=== PATIENT | female | born 1985 | race Caucasian/White ===

== ENCOUNTER 2016-02-28 12:15 | Emergency (ER) | payer OTHER ==
[~2016-02-28] VITALS: Ht 162.6 cm; Wt 108.9 kg
[~2016-02-28 12:15] MED LIST: ACET-749 PO; OMEP20TA14 PO; PEDICHW53 PO
[2016-02-28 12:19] VITALS: BP 142/84; PULSE 93; TEMP 36.4; O2SAT 98; Ht 162.6 cm; Wt 108.9 kg
--- NOTE | 2016-02-28 12:33 | EMERGENCY ROOM VISIT NOTE ---
ED Visit Note First contact with patient: 12:23 CHIEF COMPLAINT: Head congestion HPI: This 30-year-old female presents the ER with complaints of head and chest congestion which started one and a half weeks ago. The patient states that the chest congestion has gotten better but she still has a head congestion with a lot of pressure between her eyes into the left temporal region. She also admits to pressure in both her ears and left ear pain. The patient denies any sore throat. The patient denies any fever or cough at this time. The patient has been taking multiple [id number] symptomatic treatment with slight relief. REVIEW OF SYSTEMS: 6 system review was performed and was negative unless stated otherwise in history of present illness. PMH: The patient is healthy; SOCIAL HISTORY: Patient with her family. The patient denies any tobacco or alcohol use. PHYSICAL EXAM: Vital Signs were reviewed: Reviewed Nurse's notes and agree. Oxygen saturation is 98 % on room air which is normal . GENERAL: 30-year-old male appears in no acute distress. MENTAL STATUS: Alert, oriented, coherent. EARS: Canals clear. TMs good light reflex, no erythema or fluid level noted. NOSE: Nasal mucosa with moderate erythema engorgement. PHARYNX: No erythema, no edema noted. No exudate noted. Airway is adequate. SINUSES: Patient has diffuse tenderness palpation over the maxillary and frontal sinuses. NECK: Supple, non-tender. No lymphadenopathy noted. LUNGS: Clear to auscultation without wheezes rales or rhonchi. CARDIAC: Regular rate and rhythm without murmur. SKIN: No rashes noted. DIAGNOSIS: Acute sinusitis DISCHARGE INSTRUCTIONS: Ibuprofen 600 mg every 6 hours with food for pain. Take Augmentin as prescribed. Continue [id number] symptomatic treatment. If symptoms persist, follow-up with your family physician. Current/Historical Medications Scheduled Acetaminophen/Codeine (Tylenol W/Codeine #3), 2 TAB PO Q8 Omeprazole Magnesium (Prilosec Otc), 1-2 TAB PO DAILY Pediatric Multiple Vitamin W/ (Flintstones Gummies), 2 TAB PO QAM Allergies Coded Allergies: Chlorhexidine (Verified Allergy, Mild, RASH, 02/19/15) FINE RED RASH AND SKIN BURNING Latex (Verified Allergy, Mild, ITCHINESS, 02/18/15) Vital Signs Date Time Temp Pulse Resp B/P Pulse Ox O2 Delivery O2 Flow Rate FiO2 02/28/16 12:19 36.4 93 18 142/84 98 Room Air Departure Information Referrals No Doctor, Assigned (PCP) [facility]
[2016-02-28] MEDS ORDERED: AMOX875T PO (12:34)
== END 2016-02-28 12:50 | disposition home or self-care (01) ==
LOC: C.EDB 12:16 → C.EDD 12:50
DX: J01.90 Acute sinusitis, unspecified (principal)

== ENCOUNTER → 2016-03-10 | Outpatient (CLI) | payer OTHER ==
[~2016-03-10] MED LIST changes: -ACET-749 PO; +AMOX875T PO; -OMEP20TA14 PO; -PEDICHW53 PO
[2016-03-10 12:19] LABS: BASO % 0.9 %; BASO ABS # 0.08 K/uL (0-0.2); COMPLETE YES; HEMATOCRIT 41.4 % (37-47); IG% 0.2 %; LYMPH % 36.8 %; MEAN CELL VOLUME 87.5 fL (80-100); MEAN CORPUSCULAR HEMOGLOBIN 29.6 pg (25-34); MEAN CORPUSCULAR HGB CONC 33.8 g/dl (32-36); MEAN PLATELET VOLUME 10.1 fL (7.4-10.4); MONO % 4.6 %; NEUT % 56.5 %; PLATELET COUNT 323 K/uL (130-400); RED BLOOD COUNT 4.73 M/uL (4.2-5.4)
[2016-03-10 12:46] LABS: BLOOD UREA NITROGEN 6 mg/dl (7-18); BUN/CREATININE RATIO 7.6 (10-20); CALCIUM 9.2 mg/dl (8.5-10.1); CARBON DIOXIDE 26 mmol/L (21-32); CHLORIDE 106 mmol/L (98-107); CREATININE 0.79 mg/dl (0.60-1.20); GLUCOSE 83 mg/dl (70-99); POTASSIUM 4.2 mmol/L (3.5-5.1); SODIUM 140 mmol/L (136-145)
== END | disposition home or self-care (01) ==
LOC: C.LABPVFM 10:47
PROVIDERS: ATTEND Nurse Practitioner
DX: R53.83 Other fatigue (principal); R41.840 Attention and concentration deficit; N92.0 Excessive and frequent menstruation with regular cycle

== ENCOUNTER → 2016-04-04 | Outpatient (CLI) | payer OTHER | END | disposition home or self-care (01) | LOC: C.PAPS 15:18 | PROVIDERS: ATTEND Obstetrics & Gynecology | DX: Z01.419 Encounter for gynecological examination (general) (routine) without abnormal findings (principal) ==

== ENCOUNTER → 2016-05-05 | Outpatient (CLI) | payer OTHER ==
[~2016-05-05] MED LIST changes: +ACET-1256 PO; -AMOX875T PO; +BUSP-8 PO; +FLUO20CA35 PO; +HYDR-5688 PO; +IBUP-1050 PO; +ONDA4TAB46 PO
== END | disposition home or self-care (01) ==
LOC: C.LABPVFM 13:31
PROVIDERS: ATTEND Nurse Practitioner
DX: R53.83 Other fatigue (principal); R41.840 Attention and concentration deficit; E55.9 Vitamin D deficiency, unspecified

== ENCOUNTER 2016-12-21 21:18 | Observation (INO) | payer OTHER ==
[~2016-12-21] VITALS: Ht 162.6 cm; Wt 107.0 kg
[2016-12-21] MEDS ORDERED: ONDANSETRON INJ 2 MG/ML 2 ML VIAL IV STA (21:40)
[2016-12-21] MEDS ORDERED: MoRPHine SULFATE 4 MG/ML 1 ML CARP\\VIAL IV STA (21:40)
[2016-12-21] MEDS ORDERED: FAMOTIDINE 20MG/5ML IV PUSH IV STA (21:40)
[2016-12-21 22:16] LABS: PREG INTERNAL NEGATIVE QC NEG CLEAR BACKGROUND; PREG INTERNAL POSITIVE QC POS CONTROL LINE
[2016-12-21 22:22] LABS: BUN/CREATININE RATIO 12.1 (10-20); CALCIUM 9.2 mg/dl (8.5-10.1); CREATININE 0.86 mg/dl (0.60-1.20); POTASSIUM 3.9 mmol/L (3.5-5.1)
[2016-12-21] MEDS ORDERED: HYDROmorphone INJ 1 MG/ML SYR IV STA (22:23)
[2016-12-21 22:26] LABS: BASO % 0.2 %; BASO ABS # 0.04 K/uL (0-0.2); COMPLETE YES; EOS % 0.2 %; HEMATOCRIT 41.9 % (37-47); IG% 0.3 %; LYMPH % 9.5 %; LYMPH ABS # 1.86 K/uL (1.2-3.4); MEAN CELL VOLUME 90.7 fL (80-100); MEAN CORPUSCULAR HGB CONC 34.1 g/dl (32-36); NEUT % 83.8 %; PLATELET COUNT 323 K/uL (130-400); RED BLOOD COUNT 4.62 M/uL (4.2-5.4); WHITE BLOOD COUNT 19.63 K/uL (4.8-10.8)
--- NOTE | 2016-12-21 22:31 | DIAGNOSTIC IMAGING REPORT ---
CHEST ONE VIEW PORTABLE HISTORY: 31 years-old Female CHEST PAIN acute atypical chest pain COMPARISON: None available TECHNIQUE: Portable AP view of the chest FINDINGS: Cardiac mediastinal and hilar silhouettes are within normal limits. No pneumothorax, pleural effusion, focal airspace consolidation or overt pulmonary edema. Bones of the chest are grossly intact. IMPRESSION: No acute cardiopulmonary process. The above report was generated using voice recognition software. It may contain grammatical, syntax or spelling errors. Electronically signed by: Urban Solorio M.D. 12/21/2016 10:30 PM Dictated Date/Time: 12/21/2016 10:30 PM
[2016-12-21] MEDS ORDERED: BUSP-8 PO (22:53)
[2016-12-21] MEDS ORDERED: ONDA4TAB46 PO (22:53)
[2016-12-21] MEDS ORDERED: IBUP-1050 PO (22:53)
[2016-12-21] MEDS ORDERED: ACET-1256 PO (22:53)
[2016-12-21] MEDS ORDERED: FLUO20CA35 PO (22:53)
[2016-12-22] VITALS (7 sets, daily range): BP systolic 104–138; BP diastolic 65–95; PULSE 67–79; TEMP 36.7–37; O2SAT 92–96; Ht 162.6 cm; Wt 107.0 kg
[2016-12-22] MEDS ORDERED: HYDROmorphone INJ 1 MG/ML SYR IV STA (00:13)
[2016-12-22] MEDS ORDERED: CEFOXITIN 2000MG/60 ML D5W IV STA (00:23)
[2016-12-22] MEDS ORDERED: SODIUM CHLORIDE 0.9% 1000ML 1,000 ML IV STA (00:23)
[2016-12-22] MEDS ORDERED: CEFOXITIN IV 2,000 MG in DEXTROSE 5% 50ML 50 ML IV STA (00:29)
[2016-12-22] MEDS ORDERED: HYDROmorphone INJ 1 MG/ML SYR IV PRN (00:45)
[2016-12-22] MEDS: ONDANSETRON INJ 2 MG/ML 2 ML VIAL IV PRN ×2 (02:15→18:04)
[2016-12-22] MEDS: ACETAMINOPHEN IV 1,000 MG in EMPTY BAG 0 ML IV SCH ×3 (02:15→18:11)
[2016-12-22] MEDS: LACTATED RINGER'S 1000ML 1,000 ML IV SCH ×3 (02:16→18:10)
[2016-12-22] MEDS ORDERED: IV FLUIDS COMPLETED PRN (02:45)
[2016-12-22] MEDS ORDERED: INFLUENZA VIRUS QUAD VACCINE 0.5 ML SYR IM. ONE (02:45)
[2016-12-22] MEDS ORDERED: INFLUENZA ADMINISTRATION CHARGE ONE (02:45)
--- NOTE | 2016-12-22 05:42 | EMERGENCY ROOM VISIT NOTE ---
History First contact with patient: 21:34 Chief Complaint: ABDOMINAL PAIN Stated Complaint: CHOLECYSTITIS Nursing Triage Summary: patient states she has had right shoulder pain for past couple days and and recently pain began radiating into right upper quadrant abdominal area. History of Present Illness The patient is a 31 year old female who presents to the Emergency Room with complaints of right upper quadrant pain for the past day with subjective fever and chills and nausea and vomiting. Pain currently 8 out of 10. Nothing makes it better or worse. It does not radiate. Patient smokes and has traveled recently. No history of blood clots. Patient denies chest pain, headache, sore throat, back pain, urinary symptoms. Review of Systems See HPI for pertinent positives & negatives. A total of 10 systems reviewed and were otherwise negative. Past Medical/Surgical History Medical Problems: (1) 38 weeks 2 days (2) Cholecystitis (3) Twins Social History Smoking Status: Current Some Day Smoker Current/Historical Medications Scheduled Acetaminophen (Tylenol), 1,000 MG PO Q6 Buspirone Hcl (Buspirone Hcl), 10 MG PO TID Fluoxetine (Prozac), 20 MG PO QAM Scheduled PRN Ibuprofen (Advil), 400-600 MG PO Q6H PRN for Pain or Fever Ondansetron Hcl (Zofran), 4 MG PO Q6 PRN for Nausea Physical Exam Vital Signs Date Time Temp Pulse Resp B/P (MAP) Pulse Ox O2 Delivery O2 Flow Rate FiO2 12/22/16 00:27 36.9 12/21/16 23:42 71 20 156/94 98 Room Air 12/21/16 22:28 63 18 145/79 98 Room Air 12/21/16 22:00 65 12/21/16 21:49 98 Room Air 12/21/16 21:49 98 Room Air 12/21/16 21:25 36.8 77 16 152/97 98 Room Air Physical Exam VITALS: Vitals are noted on the nurse's note and reviewed by myself. Vital signs stable. GENERAL: White female writhing in pain, in no acute distress, nondiaphoretic, well-developed well-nourished. SKIN: The skin was without rashes, erythema, edema, or bruising. There is no tenting of the skin. Capillary reflex less than 2 seconds. HEAD: Normocephalic atraumatic. EARS: External auditory canals clear, tympanic membranes pearly thompson without erythema or effusion bilaterally. EYES: Pupils equal round and reactive to light and accommodation. Conjunctivae without injection, sclerae without icterus. Extraocular movements intact. NOSE: Patent, turbinates without inflammation or discharge. MOUTH: Mucous membranes moist. Pharynx without erythema or exudate. Uvula midline. Airway patent. Tongue does not deviate. NECK: Supple without nuchal rigidity. No lymphadenopathy. No thyromegaly. Cervical spine is nontender. No JVD. HEART: Regular rate and rhythm without murmurs gallops or rubs. LUNGS: Clear to auscultation bilaterally without wheezes, rales or rhonchi. No dullness to percussion. No retractions or accessory muscle use. ABDOMEN: Positive bowel sounds x 4. Normal tympanic percussion. Soft, tender to palpation right upper quadrant, protuberant, obese, no CVA tenderness, without masses or organomegaly. Loredo sign positive. No guarding or rebound tenderness. MUSCULOSKELETAL: No muscle atrophy, erythema, or edema noted. NEURO: Patient was alert and oriented to person place and time. Normal sensation to light and sharp touch. No focal neurological deficits. Medical Decision & Procedures Laboratory Results 12/21/16 21:40 Red Blood Count 4.62, Mean Corpuscular Volume 90.7, Mean Corpuscular Hemoglobin 31.0, Mean Corpuscular Hemoglobin Concent 34.1, Mean Platelet Volume 10.0, Neutrophils (%) (Auto) 83.8, Lymphocytes (%) (Auto) 9.5, Monocytes (%) (Auto) 6.0, Eosinophils (%) (Auto) 0.2, Basophils (%) (Auto) 0.2, Neutrophils # (Auto) 16.46, Lymphocytes # (Auto) 1.86, Monocytes # (Auto) 1.18, Eosinophils # (Auto) 0.03, Basophils # (Auto) 0.04 12/21/16 21:40 Test 12/21/16 21:40 12/21/16 21:48 White Blood Count 19.63 K/uL (4.8-10.8) Red Blood Count 4.62 M/uL (4.2-5.4) Hemoglobin 14.3 g/dL (12.0-16.0) Hematocrit 41.9 % (37-47) Mean Corpuscular Volume 90.7 fL (80-100) Mean Corpuscular Hemoglobin 31.0 pg (25-34) Mean Corpuscular Hemoglobin Concent 34.1 g/dl (32-36) Platelet Count 323 K/uL (130-400) Mean Platelet Volume 10.0 fL (7.4-10.4) Neutrophils (%) (Auto) 83.8 % Lymphocytes (%) (Auto) 9.5 % Monocytes (%) (Auto) 6.0 % Eosinophils (%) (Auto) 0.2 % Basophils (%) (Auto) 0.2 % Neutrophils # (Auto) 16.46 K/uL (1.4-6.5) Lymphocytes # (Auto) 1.86 K/uL (1.2-3.4) Monocytes # (Auto) 1.18 K/uL (0.11-0.59) Eosinophils # (Auto) 0.03 K/uL (0-0.5) Basophils # (Auto) 0.04 K/uL (0-0.2) RDW Standard Deviation 45.2 fL (36.4-46.3) RDW Coefficient of Variation 13.6 % (11.5-14.5) Immature Granulocyte % (Auto) 0.3 % Immature Granulocyte # (Auto) 0.06 K/uL (0.00-0.02) Anion Gap 8.0 mmol/L (3-11) Est Creatinine Clear Calc Drug Dose 119.5 ml/min Estimated GFR () 105.8 Estimated GFR (Non- 91.3 BUN/Creatinine Ratio 12.1 (10-20) Calcium Level 9.2 mg/dl (8.5-10.1) Total Bilirubin 0.5 mg/dl (0.2-1) Direct Bilirubin 0.1 mg/dl (0-0.2) Aspartate Amino Transf (AST/SGOT) 13 U/L (15-37) Alanine Aminotransferase (ALT/SGPT) 26 U/L (12-78) Alkaline Phosphatase 82 U/L (45-117) Total Protein 8.2 gm/dl (6.4-8.2) Albumin 4.3 gm/dl (3.4-5.0) Lipase 71 U/L (73-393) Human Chorionic Gonadotropin, Qual NEG (NEG) Bedside Troponin I < 0.030 ng/ml (0-0.045) Medications Administered Medications (Trade) Dose Ordered Sig/Yenny Route Start Time Stop Time Status Last Admin Dose Admin Morphine Sulfate (MoRPHine SULFATE INJ) 4 mg NOW STAT IV 12/21/16 21:40 12/21/16 21:44 DC 12/21/16 21:50 4 MG Ondansetron HCl (Zofran Inj) 4 mg NOW STAT IV 12/21/16 21:40 12/21/16 21:45 DC 12/21/16 21:50 4 MG Famotidine (Pepcid 20mg Iv Push) 20 mg ONE STAT IV 12/21/16 21:40 12/21/16 21:45 DC 12/21/16 21:50 20 MG Hydromorphone HCl (Dilaudid Inj) 1 mg NOW STAT IV 12/21/16 22:23 12/21/16 22:24 DC 12/21/16 22:27 1 MG Hydromorphone HCl (Dilaudid Inj) 1 mg NOW STAT IV 12/22/16 00:13 12/22/16 00:14 DC 12/22/16 00:13 1 MG Sodium Chloride 1,000 ml @ 999 mls/hr Q1H1M STAT IV 12/22/16 00:23 12/22/16 01:23 DC 12/22/16 00:40 999 MLS/HR Cefoxitin Sodium 2000 mg/Dextrose 60 ml @ 120 mls/hr NOW STAT IV 12/22/16 00:29 12/22/16 00:58 DC 12/22/16 00:39 120 MLS/HR ED Course Prior records/ancillary studies reviewed. Triage Nursing notes reviewed. Additional history obtained from family. The patient's history was concerning for abdominal pain. Differential diagnosis: Etiologies such as appendicitis, diverticulitis, PUD, biliary pathology, UTI, pancreatitis, obstruction, mesenteric ischemia, aortic pathology, infections, inflammatory bowel disease, renal colic, as well as others were entertained. Physical examination findings: As above. ER treatment provided: Morphine, Dilaudid, IV fluids On reassessment the patient felt better. Diagnostics interpreted by me: ECG: Normal sinus, normal intervals, no acute ST-T wave changes. Impression normal sinus rhythm interpreted by myself The labs revealed leukocytosis. Negative lactic acid. Negative troponin Imaging studies: Ultrasound is concerning for acute cholecystitis per radiology CHEST ONE VIEW PORTABLE HISTORY: 31 years-old Female CHEST PAIN acute atypical chest pain COMPARISON: None available TECHNIQUE: Portable AP view of the chest FINDINGS: Cardiac mediastinal and hilar silhouettes are within normal limits. No pneumothorax, pleural effusion, focal airspace consolidation or overt pulmonary edema. Bones of the chest are grossly intact. IMPRESSION: No acute cardiopulmonary process. The above report was generated using voice recognition software. It may contain grammatical, syntax or spelling errors. Consultation: A consultation was placed with the surgeon, Dr. Woodson. The case was discussed and diagnostics were reviewed. The patient was admitted to his service. Exam and history seem consistent with acute cholecystitis. Patient was placed nothing by mouth. She was started on antibiotics. She states she had a fever at home. She does not have one here in the ER. Her pain was managed. She will be evaluated by surgery. By the evaluation outlined above emergent etiologies such as appendicitis, diverticulitis, PUD, UTI, pancreatitis, obstruction, mesenteric ischemia, aortic pathology, inflammatory bowel disease, renal colic, as well as others were deemed relatively unlikely. The pt informed about the findings as listed above. All questions were answered and pleased with the treatment. Case reviewed with my attending. Medical Decision As above Medication Reconcilliation Current Medication List: was personally reviewed by me Blood Pressure Screening Patient's blood pressure: Normal blood pressure Impression Primary Impression: Acute cholecystitis Departure Information Dispostion Still a Patient Condition FAIR Referrals Marely Shi, Dickson.N.P (PCP) Forms HOME CARE DOCUMENTATION FORM, IMPORTANT VISIT INFORMATION Patient Instructions My [facility]
[2016-12-22] MEDS: CEFOXITIN IV 1,000 MG in DEXTROSE 5% 50ML 50 ML IV SCH ×4 (06:05→23:35)
--- NOTE | 2016-12-22 07:01 | DIAGNOSTIC IMAGING REPORT ---
CLINICAL HISTORY: ULTRASOUND RIGHT UPPER QUADRANT ABDOMEN CLINICAL HISTORY: Right upper quadrant abdominal pain. COMPARISON STUDY: No priors. TECHNIQUE: Real-time, grayscale, and color flow sonography of the right upper quadrant of the abdomen was performed. Images are reviewed in the transverse and longitudinal planes. FINDINGS: Liver: The liver is normal in size and echotexture. There is no intrahepatic biliary ductal dilatation. The main portal vein is patent. Gallbladder: The gallbladder is distended and filled with shadowing calcified gallstones. The gallbladder wall appears mildly thickened measuring up to 6 mm. Trace pericholecystic fluid is seen. A sonographic Loredo's sign is reportedly absent. The common bile duct measures up to 0.7 cm in diameter. Pancreas: Not well visualized due to overlying bowel gas. Right kidney: Survey images of the right kidney demonstrate normal size and echotexture. There is no hydronephrosis. Ascites: None. IMPRESSION: Cholelithiasis with sonographic findings concerning for acute cholecystitis. Clinical correlation will be required. Nuclear hepatobiliary scan could be considered for confirmation. Electronically signed by: Beto Gordillo M.D. 12/22/2016 6:59 AM Dictated Date/Time: 12/22/2016 6:58 AM
--- NOTE | 2016-12-22 07:44 | History and Physical ---
History & Physical Date Dec 22, 2016. Chief Complaint Right Upper Quadrant Abdominal Pain History of Present Illness The patient is a 31 year old female with PMH significant for anxiety with complaints of back pain and abdominal pain X 2 days. Patient states that she has had this back pain for the last 2 years and felt that it was just due to back spasms. Patient unable to correlate back pain with eating or with certain foods. Strong family history of gallbladder issues- mother and maternal grandparents both required cholecystectomy. Patient reports that severe back pain started to radiate to right upper quadrant yesterday. She reports that she became nauseous and vomited several times yesterday. She reports that she had chills yesterday. Prior abdominal surgeries consist of (February,). Past Medical/Surgical History Medical Problems: 1. Cholecystitis. 2. Anxiety Surgical History 1. - twins, February,. Additional History Hepatic Disease: No Endocrine Disorder: No Kidney Disease: No Hypertension: No Heart Disease: No Bleeding Tendencies: No Infectious Diseases: No Allergies Coded Allergies: Chlorhexidine (Verified Allergy, Mild, RASH, 02/28/16) FINE RED RASH AND SKIN BURNING Latex (Verified Allergy, Mild, ITCHINESS, 02/28/16) Home Medications Scheduled Acetaminophen (Tylenol), 1,000 MG PO Q6 Buspirone Hcl (Buspirone Hcl), 10 MG PO TID Fluoxetine (Prozac), 20 MG PO QAM Scheduled PRN Ibuprofen (Advil), 400-600 MG PO Q6H PRN for Pain or Fever Ondansetron Hcl (Zofran), 4 MG PO Q6 PRN for Nausea Physical Examination Skin: warm/dry, no rash Cardiovascular: regular rate, rhythm, no edema, no murmur Abdomen / GI: normal bowel sounds, non tender Diagnosis CLINICAL HISTORY: ULTRASOUND RIGHT UPPER QUADRANT ABDOMEN CLINICAL HISTORY: Right upper quadrant abdominal pain. COMPARISON STUDY: No priors. TECHNIQUE: Real-time, grayscale, and color flow sonography of the right upper quadrant of the abdomen was performed. Images are reviewed in the transverse and longitudinal planes. FINDINGS: Liver: The liver is normal in size and echotexture. There is no intrahepatic biliary ductal dilatation. The main portal vein is patent. Gallbladder: The gallbladder is distended and filled with shadowing calcified gallstones. The gallbladder wall appears mildly thickened measuring up to 6 mm. Trace pericholecystic fluid is seen. A sonographic Loredo's sign is reportedly absent. The common bile duct measures up to 0.7 cm in diameter. Pancreas: Not well visualized due to overlying bowel gas. Right kidney: Survey images of the right kidney demonstrate normal size and echotexture. There is no hydronephrosis. Ascites: None. IMPRESSION: Cholelithiasis with sonographic findings concerning for acute cholecystitis. Clinical correlation will be required. Nuclear hepatobiliary scan could be considered for confirmation. Electronically signed by: Beto Gordillo M.D. 12/22/2016 6:59 AM Dictated Date/Time: 12/22/2016 6:58 AM Plan of Treatment 31 yo female- US confirmed Cholelithiasis, Possible Acute Cholecystitis. Reviewed patient's recent imaging. WBC elevated at 19.63. Patient NPO Plan for Laparoscopic Cholecystectomy, Possible Open with Possible Cholangiogram with Dr. Woodson in main OR today. Risks of surgery were discussed with patient and include bleeding, infection , injury, etc. Patient had no further questions regarding surgery or post-operative instructions. Dr. Woodson will be in to see patient pre-operatively to review surgery and to sign consent form.
[2016-12-22] MEDS ORDERED: BUPIVACAINE/EPINEPHRINE 0.5% MPF 1:200,000 30 ML VIAL ONE (08:05)
[2016-12-22] MEDS ORDERED: PHENYLEPHRINE 100MCG/ML 5ML SYR IV PRN (08:15)
[2016-12-22] MEDS ORDERED: ONDANSETRON INJ 2 MG/ML 2 ML VIAL IV PRN (08:15)
[2016-12-22] MEDS ORDERED: EpHEDrine SULFATE INJ 50 MG/ML AMP IV PRN (08:15)
[2016-12-22] MEDS ORDERED: ATROPINE SULFATE 0.1 MG/ML 5ML SYR IV PRN (08:15)
[2016-12-22] MEDS ORDERED: FENTANYL CITRATE INJ 50 MCG/1 ML 2 ML VIAL ONE ×2 (08:41→10:44)
[2016-12-22] MEDS ORDERED: ROCURONIUM BROMIDE 10 MG/ML 5 ML VIAL IV ONE (08:41)
[2016-12-22] MEDS ORDERED: PROPOFOL IV EMULSION 10 MG/ML 20 ML VIAL IV ONE (08:41)
[2016-12-22] MEDS ORDERED: MIDAZOLAM HCL 1 MG/ML 2ML VIAL ONE (08:41)
[2016-12-22] MEDS ORDERED: LIDOCAINE HCL 2% 2 ML VIAL (20MG/ML) ONE (08:41)
--- NOTE | 2016-12-22 09:22 | History & Physical Bridge Note ---
H&P Re-Evaluation Bridge Note: I have examined the patient, reviewed the History & Physical and in the interval since the performance of the History & Physical I have noted the following changes of clinical significance: No changes noted
[2016-12-22] MEDS ORDERED: DEXAMETHASONE SOD INJ 4 MG/ML VIAL ONE (10:03)
[2016-12-22] MEDS ORDERED: ONDANSETRON INJ 2 MG/ML 2 ML VIAL ONE ×3 (10:03→10:59)
[2016-12-22] MEDS ORDERED: NEOSTIGMINE METHYLSULFATE 5 MG/5 ML SYR ONE (10:03)
[2016-12-22] MEDS ORDERED: GLYCOPYRROLATE INJ 0.2 MG/ML VIAL ONE (10:03)
[2016-12-22] MEDS: HYDROmorphone INJ 2 MG/ML SYR/VIAL IV PRN ×4 (11:19→11:34)
--- NOTE | 2016-12-22 11:27 | [facility] Operative Report ---
Operative Report Operative Date Dec 22, 2016. Pre-Operative Diagnosis Acute Cholecystitis, Cholelithiasis Post-Operative Diagnosis Acute Cholecystitis, Cholelithiasis Procedure(s) Performed Laparoscopic Cholecystectomy Surgeon Dr. Woodson Estimated Blood Loss 50 mL Findings acutely inflammed gallbladder Specimens A: Gallbladder Anesthesia get Complication(s) None Disposition Recovery Room / PACU Description of Procedure After informed consent was obtained the patient was taken the operating room and placed in supine position. After successful intubation the abdomen was sterilely prepped and draped in usual fashion. A supraumbilical incision was made with an 11 blade scalpel and carried down through the soft tissue using electrocautery. The anterior rectus fascia was opened using electrocautery and 2 #0 Vicryl stay sutures were placed. Peritoneum was elevated with hemostats and incised under direct vision using a Metzenbaum scissor. A finger sweep was performed. A 12 mm Jean trocar was placed and the abdomen was insufflated 18 mmHg. Laparoscope was inserted and the abdomen was examined 360. A subxiphoid 5 mm port which would later be changed to a 12 mm port was placed. 2 right upper quadrant 5 mm ports were placed all under direct vision. The patient was placed in reverse Trendelenburg position and slightly airplaned to the left. The gallbladder was acutely inflamed and very thick. We were unable to grab it. We placed a gallbladder needle and suctioned out about 25 mL of white bile indicating cystic duct obstruction. Once we suctioned this out we were then able to grab the gallbladder and elevated superiorly and laterally. I began dissecting free the neck of the gallbladder. The common bile duct was readily visible. The short cystic duct was adhesed to the common duct making delineation very difficult. I went more distal and came around the neck of the gallbladder as this appeared to be more safe. Because of the thick nature of the tissue and the inflammation I had to use a AFSANEH linear stapler to transect the gallbladder neck/cystic duct. I used a sellers cartridge to perform this. I also incorporated the cystic artery while doing this. There were several posterior branches of the artery that were clipped and divided as well. I then removed the gallbladder from the gallbladder fossa using electrocautery. It was markedly inflamed and intrahepatic. Once I had it off of the liver bed I thoroughly irrigated the right upper quadrant suctioned dry. Any small bleeding points were controlled using electrocautery. At the end of the procedure there was adequate hemostasis and no evidence of any bile leaks. I did look around the abdomen and saw no other gross abnormalities. The gallbladder was placed into an Endo Catch bag and removed from the camera port site. The fascia the camera port site was closed using 0 Vicryl figure-of- eight fashion. All the wounds were irrigated and closed using 4-0 Monocryl. Marcaine was injected around him for postoperative analgesia and skin glue used as a dressing. Patient was awaken extubated and transferred recovery in stable condition I attest to the content of the Intraoperative Record and any orders documented therein. Any exceptions are noted below.
[2016-12-22] MEDS ORDERED: MoRPHine SULFATE 2 MG/ML CARP IV PRN (11:30)
[2016-12-22] MEDS ORDERED: MoRPHine SULFATE 4 MG/ML 1 ML CARP\\VIAL IV PRN (11:30)
[2016-12-22] MEDS ORDERED: HYDROCODONE/ACETAMOPHEN 5/325MG TAB PO PRN (11:30)
--- NOTE | 2016-12-22 11:47 | Anesthesiology Progress Note ---
Anesthesia Post Op Note Date & Time Dec 22, 2016 at 11:47 Vital Signs Pain Intensity: 6 Vital Signs Past 12 Hours Date Time Temp Pulse Resp B/P (MAP) Pulse Ox O2 Delivery O2 Flow Rate FiO2 12/22/16 11:40 74 18 137/76 95 Oxymask 3 12/22/16 11:30 79 18 137/84 96 Oxymask 5 12/22/16 11:20 73 18 145/83 95 Oxymask 10 12/22/16 11:14 36.5 74 18 158/86 95 Oxymask 10 12/22/16 07:10 36.8 73 16 104/65 (78) 95 Room Air 12/22/16 01:44 37.0 67 16 138/95 (109) 95 Room Air 12/22/16 01:32 72 20 162/92 98 12/22/16 01:30 Room Air 12/22/16 01:10 Room Air 12/22/16 00:43 80 18 156/94 96 Room Air 12/22/16 00:27 36.9 Notes Mental Status: alert / awake / arousable, participated in evaluation Pt Amnestic to Procedure: Yes Nausea / Vomiting: adequately controlled Pain: adequately controlled Airway Patency, RR, SpO2: stable & adequate BP & HR: stable & adequate Hydration State: stable & adequate Anesthetic Complications: no major complications apparent
--- NOTE | 2016-12-22 13:52 | Discharge Instructions ---
Discharge Instructions Date of Service Dec 22, 2016. Admission Reason for Admission: Cholecystitis Discharge Discharge Diagnosis / Problem: Cholecystitis Discharge Goals Goal(s): Decrease discomfort, Improve function Activity Recommendations Activity Limitations: as noted below Lifting Limitations: no more than 10 pounds Exercise/Sports Limitations: until after follow-up appointment May Resume Sexual Activity: after follow-up appointment Shower/Bathe: no limitations Driving or Machine Use: resume 1 day after discharge . Instructions / Follow-Up Instructions / Follow-Up Please follow-up with Dr. Woodson in the office in 1-2 weeks. General Surgery Office Location: [address] [place] [address] [place], [place] [id number] Please call the office at [phone] to make a follow-up appointment. Please call the office with any questions or concerns. Current Hospital Diet Patient's current hospital diet: Regular Diet Discharge Diet Recommended Diet: Regular Diet Procedures Procedures Performed: Laparoscopic Cholecystectomy Pending Studies Studies pending at discharge: yes List of pending studies: Pathology report. Medical Emergencies . Who to Call and When: Medical Emergencies: If at any time you feel your situation is an emergency, please call 911 immediately. . Non-Emergent Contact Non-Emergency issues call your: Primary Care Provider, Surgeon Call Non-Emergent contact if: temperature is above 101.5, your pain is not controlled, wound has increased drainage, wound has increased redness . "Provider Documentation" section prepared by Rosalinda Goodson. . VTE Core Measure Inpt VTE Proph given/why not?: SCD's [place] Drug Monitoring Program Search Results: patient reviewed within database, no issues identified
[2016-12-22] MEDS: HYDROCODONE/ACETAMOPHEN 5/325MG TAB PO PRN ×2 (14:47→19:38)
[2016-12-22] MEDS: FLUOXETINE HCL 20 MG CAP PO SCH (15:30)
[2016-12-22] MEDS: MoRPHine SULFATE 2 MG/ML CARP IV PRN ×2 (17:40→23:54)
--- NOTE | 2016-12-22 20:23 | Medical Student: [facility] ---
Med Student History & Physical Date & Time of Service: Dec 22, 2016 at 19:51 Chief Complaint: Cholecystitis Primary Care Physician: Marely Shi C.R.N.P History of Present Illness Source: patient 31yo female with medical history significant for class III/morbid obesity and anxiety presented to the ED on 12/21/16 with severe RUQ pain, nausea, and vomiting for a 24hr period. The pain started in the right back below the scapula. Then, the pain spread around the right flank and into the RUQ of the abdomen. Patient reported a fever of 102degF at home as well as nausea, vomiting x 3, and chills. Denied pruritus and jaundice. Patient states that she has had periodic right back pain for about 2 years, but recently has become more severe and frequent. One week ago she experienced an episode of right back pain, nausea, and vomiting. Patient has not noticed a connection between fatty food intake and these episodes of pain. She does describe a mildly fatty meal before this current episode. Patient has a strong family history for gallbladder removal (mother, grandparents, aunt). Past Medical/Surgical History Past medical history: 1.) anxiety 2.) class III/morbid obesity Past surgical history: 1.) caesarean section Family History Mother- cervical cancer Social History Denies tobacco and alcohol use [id number] mom with three children Drug Use: none Marital Status: Housing status: lives with family Immunizations History of Influenza Vaccine: Unknown History of Tetanus Vaccine?: Unknown Allergies Coded Allergies: Chlorhexidine (Verified Allergy, Mild, RASH, 02/28/16) FINE RED RASH AND SKIN BURNING Latex (Verified Allergy, Mild, ITCHINESS, 02/28/16) Medications Acetaminophen (Tylenol), 1,000 MG PO Q6 Buspirone Hcl (Buspirone Hcl), 10 MG PO TID Fluoxetine (Prozac), 20 MG PO QAM Ibuprofen (Advil), 400-600 MG PO Q6H PRN for Pain or Fever Ondansetron Hcl (Zofran), 4 MG PO Q6 PRN for Nausea Review of Systems Constitutional: + fever, + chills, + fatigue (lack of sleep) Eyes: No eye pain, No redness ENT: No hearing loss, No nasal symptoms, No sore throat Respiratory: No cough, No shortness of breath, No dyspnea on exertion Cardiovascular: No chest pain, No edema, No palpitations Abdomen: + pain (RUQ tenderness), + nausea, + vomiting Musculoskeletal: No joint pain, No muscle pain, No calf pain Genitourinary - Female: No urinary frequency, No urinary urgency Neurologic: No numbness/tingling, No vertigo Psychiatric: No depression symptoms Integumentary: No rash, No itch Physical Exam Vital Signs (24 Hours) Date Time Temp Pulse Resp B/P (MAP) Pulse Ox O2 Delivery O2 Flow Rate FiO2 12/22/16 15:20 Room Air 12/22/16 15:00 36.7 74 18 121/75 (90) 92 Room Air 12/22/16 13:02 95 Nasal Cannula 2.0 12/22/16 13:00 79 16 137/79 (98) 96 Room Air 12/22/16 12:55 95 Nasal Cannula 2.0 12/22/16 11:50 37.0 81 18 146/78 96 Oxymask 3 12/22/16 11:40 74 18 137/76 95 Oxymask 3 12/22/16 11:30 79 18 137/84 96 Oxymask 5 12/22/16 11:20 73 18 145/83 95 Oxymask 10 12/22/16 11:14 36.5 74 18 158/86 95 Oxymask 10 12/22/16 07:10 36.8 73 16 104/65 (78) 95 Room Air 12/22/16 01:44 37.0 67 16 138/95 (109) 95 Room Air 12/22/16 01:32 72 20 162/92 98 12/22/16 01:30 Room Air 12/22/16 01:10 Room Air 12/22/16 00:43 80 18 156/94 96 Room Air 12/22/16 00:27 36.9 12/21/16 23:42 71 20 156/94 98 Room Air 12/21/16 22:28 63 18 145/79 98 Room Air 12/21/16 22:00 65 12/21/16 21:49 98 Room Air 12/21/16 21:49 98 Room Air 12/21/16 21:25 36.8 77 16 152/97 98 Room Air General Appearance: WD/WN, no apparent distress, + obese (class III/morbid) Head: normocephalic, atraumatic Eyes: normal inspection, PERRL ENT: hearing grossly normal, pharynx normal Neck: no adenopathy, thyroid normal, trachea midline Respiratory/Chest: chest non-tender, lungs clear, normal breath sounds, no respiratory distress Cardiovascular: regular rate, rhythm, no edema, no JVD, no murmur Abdomen/GI: normal bowel sounds, soft, no organomegaly, + tenderness (RUQ), + pertinent finding (positive Loredo's sign reported) Back: normal inspection, no CVA tenderness Extremities/Musculoskelatal: normal inspection, no calf tenderness, no pedal edema Neurologic/Psych: alert, normal mood/affect, oriented x 3 Skin: normal color, warm/dry, no rash Lymphatic: no adenopathy Diagnostics Laboratory Results Results Past 24 Hours Test 12/21/16 21:40 12/21/16 21:48 Range/Units White Blood Count 19.63 4.8-10.8 K/uL Red Blood Count 4.62 4.2-5.4 M/uL Hemoglobin 14.3 12.0-16.0 g/dL Hematocrit 41.9 37-47 % Mean Corpuscular Volume 90.7 80-100 fL Mean Corpuscular Hemoglobin 31.0 25-34 pg Mean Corpuscular Hemoglobin Concent 34.1 32-36 g/dl Platelet Count 323 130-400 K/uL Mean Platelet Volume 10.0 7.4-10.4 fL Neutrophils (%) (Auto) 83.8 % Lymphocytes (%) (Auto) 9.5 % Monocytes (%) (Auto) 6.0 % Eosinophils (%) (Auto) 0.2 % Basophils (%) (Auto) 0.2 % Neutrophils # (Auto) 16.46 1.4-6.5 K/uL Lymphocytes # (Auto) 1.86 1.2-3.4 K/uL Monocytes # (Auto) 1.18 0.11-0.59 K/uL Eosinophils # (Auto) 0.03 0-0.5 K/uL Basophils # (Auto) 0.04 0-0.2 K/uL RDW Standard Deviation 45.2 36.4-46.3 fL RDW Coefficient of Variation 13.6 11.5-14.5 % Immature Granulocyte % (Auto) 0.3 % Immature Granulocyte # (Auto) 0.06 0.00-0.02 K/uL Sodium Level 141 136-145 mmol/L Potassium Level 3.9 3.5-5.1 mmol/L Chloride Level 107 98-107 mmol/L Carbon Dioxide Level 26 21-32 mmol/L Anion Gap 8.0 3-11 mmol/L Blood Urea Nitrogen 10 7-18 mg/dl Creatinine 0.86 0.60-1.20 mg/dl Est Creatinine Clear Calc Drug Dose 119.5 ml/min Estimated GFR () 105.8 Estimated GFR (Non- 91.3 BUN/Creatinine Ratio 12.1 10-20 Random Glucose 113 70-99 mg/dl Calcium Level 9.2 8.5-10.1 mg/dl Total Bilirubin 0.5 0.2-1 mg/dl Direct Bilirubin 0.1 0-0.2 mg/dl Aspartate Amino Transf (AST/SGOT) 13 15-37 U/L Alanine Aminotransferase (ALT/SGPT) 26 12-78 U/L Alkaline Phosphatase 82 45-117 U/L Total Protein 8.2 6.4-8.2 gm/dl Albumin 4.3 3.4-5.0 gm/dl Lipase 71 73-393 U/L Human Chorionic Gonadotropin, Qual NEG NEG Bedside Troponin I < 0.030 0-0.045 ng/ml Diagnostic Radiology CLINICAL HISTORY: ULTRASOUND RIGHT UPPER QUADRANT ABDOMEN CLINICAL HISTORY: Right upper quadrant abdominal pain. COMPARISON STUDY: No priors. TECHNIQUE: Real-time, grayscale, and color flow sonography of the right upper quadrant of the abdomen was performed. Images are reviewed in the transverse and longitudinal planes. FINDINGS: Liver: The liver is normal in size and echotexture. There is no intrahepatic biliary ductal dilatation. The main portal vein is patent. Gallbladder: The gallbladder is distended and filled with shadowing calcified gallstones. The gallbladder wall appears mildly thickened measuring up to 6 mm. Trace pericholecystic fluid is seen. A sonographic Loredo's sign is reportedly absent. The common bile duct measures up to 0.7 cm in diameter. Pancreas: Not well visualized due to overlying bowel gas. Right kidney: Survey images of the right kidney demonstrate normal size and echotexture. There is no hydronephrosis. Ascites: None. IMPRESSION: Cholelithiasis with sonographic findings concerning for acute cholecystitis. Clinical correlation will be required. Nuclear hepatobiliary scan could be considered for confirmation. Electronically signed by: Beto Gordillo M.D. 12/22/2016 6:59 AM Dictated Date/Time: 12/22/2016 6:58 AM CHEST ONE VIEW PORTABLE HISTORY: 31 years-old Female CHEST PAIN acute atypical chest pain COMPARISON: None available TECHNIQUE: Portable AP view of the chest FINDINGS: Cardiac mediastinal and hilar silhouettes are within normal limits. No pneumothorax, pleural effusion, focal airspace consolidation or overt pulmonary edema. Bones of the chest are grossly intact. IMPRESSION: No acute cardiopulmonary process. The above report was generated using voice recognition software. It may contain grammatical, syntax or spelling errors. Electronically signed by: Urban Solorio M.D. 12/21/2016 10:30 PM Dictated Date/Time: 12/21/2016 10:30 PM CXR normal Normal EKG Impression Assessment and Plan Assessment: 31yo female with persistent RUQ abdominal pain, nausea, and vomiting for 24hrs. Given the patient's clinical presentation, elevated WBC of 19.63 with PMN predominance, reported fever, and ultrasound findings, it is likely that the patient has acute cholecystitis and cholelithiasis. Due to the absence of common bile duct dilation as well as total bili, direct bili, AST, ALT, and alk phos all WNLs, choledocholithiasis and cholangitis are unlikely. Lipase WNL helps r/o pancreatitis. Normal EKG and negative troponins r/o acute [place]. Lack on urinary symptoms, no CVA tenderness, and no history of kidney stones r/o nephrolithiasis and pyelonephritis. Plan: I would recommend that this patient undergo laparoscopic cholecystectomy. The risks of surgery include bleeding, infection, damage to other organs, DVT, PE, etc. The ED started patient on: Cefoxitin IV fluids dilaudid PRN zofran PRN Level of Care Med/Surg Advanced Directives Existing Living Will: No Existing Power of Risk Analyst: No
[2016-12-22] MEDS ORDERED: NURSING VERBAL MED ORDER ONE ×2 (21:15→22:00)
[2016-12-22 21:46] LABS: URINE APPEARANCE CLEAR (CLEAR); URINE BILIRUBIN NEG (NEG); URINE COLOR YELLOW; URINE NITRITE NEG (NEG); URINE SPECIFIC GRAVITY 1.008 (1.000-1.030); UROBILINOGEN NEG (NEG); ZZUR CULT IF INDIC CLEAN CATCH NO
[2016-12-22 21:50] LABS: MANUAL MICROSCOPIC REQUIRED? NO; REVIEW REQ? NO
[2016-12-23] MEDS: ACETAMINOPHEN IV 1,000 MG in EMPTY BAG 0 ML IV SCH ×2 (02:00→09:56)
[2016-12-23 03:09] VITALS: BP 144/82; PULSE 86; TEMP 36.9; O2SAT 96
[2016-12-23] MEDS: HYDROCODONE/ACETAMOPHEN 5/325MG TAB PO PRN ×2 (03:50→11:23)
[2016-12-23] MEDS: CEFOXITIN IV 1,000 MG in DEXTROSE 5% 50ML 50 ML IV SCH (06:04)
[2016-12-23] MEDS: LACTATED RINGER'S 1000ML 1,000 ML IV SCH (06:05)
[2016-12-23 06:56] LABS: BASO % 0.2 %; BASO ABS # 0.03 K/uL (0-0.2); COMPLETE YES; EOS % 0.1 %; HEMATOCRIT 37.2 % (37-47); IG% 0.3 %; LYMPH % 21.7 %; LYMPH ABS # 3.04 K/uL (1.2-3.4); MEAN CELL VOLUME 91.2 fL (80-100); MEAN CORPUSCULAR HEMOGLOBIN 30.1 pg (25-34); MEAN CORPUSCULAR HGB CONC 33.1 g/dl (32-36); MEAN PLATELET VOLUME 9.6 fL (7.4-10.4); MONO % 7.5 %; NEUT % 70.2 %; PLATELET COUNT 247 K/uL (130-400); RED BLOOD COUNT 4.08 M/uL (4.2-5.4); WHITE BLOOD COUNT 14.02 K/uL (4.8-10.8)
[2016-12-23 07:12] VITALS: BP 119/78; PULSE 78; TEMP 36.6; O2SAT 94
--- NOTE | 2016-12-23 07:59 | Surgery Progress Note ---
Surgery Progress Note Date of Service Dec 23, 2016. Subjective Post OP Day: 1 + feeling well, + ambulating, + pain controlled, No nausea, No vomiting Patient sitting in chair during evaluation. No new concerns overnight. Objective Vital Signs: Date Time Temp Pulse Resp B/P (MAP) Pulse Ox O2 Delivery O2 Flow Rate FiO2 12/23/16 07:12 36.6 78 16 119/78 (92) 94 Room Air 12/23/16 03:09 36.9 86 16 144/82 (102) 96 Room Air 12/23/16 00:00 Room Air 12/22/16 23:15 36.8 74 16 120/66 (84) 96 Room Air 12/22/16 15:20 Room Air 12/22/16 15:00 36.7 74 18 121/75 (90) 92 Room Air 12/22/16 13:02 95 Nasal Cannula 2.0 12/22/16 13:00 79 16 137/79 (98) 96 Room Air 12/22/16 12:55 95 Nasal Cannula 2.0 12/22/16 11:50 37.0 81 18 146/78 96 Oxymask 3 12/22/16 11:40 74 18 137/76 95 Oxymask 3 12/22/16 11:30 79 18 137/84 96 Oxymask 5 12/22/16 11:20 73 18 145/83 95 Oxymask 10 12/22/16 11:14 36.5 74 18 158/86 95 Oxymask 10 General Appearance: WD/WN, no apparent distress Abdomen: non tender, non distended, soft Incision(s): clean, dry, intact Laboratory Results: Results Past 24 Hours Test 12/23/16 06:40 Range/Units White Blood Count 14.02 4.8-10.8 K/uL Red Blood Count 4.08 4.2-5.4 M/uL Hemoglobin 12.3 12.0-16.0 g/dL Hematocrit 37.2 37-47 % Mean Corpuscular Volume 91.2 80-100 fL Mean Corpuscular Hemoglobin 30.1 25-34 pg Mean Corpuscular Hemoglobin Concent 33.1 32-36 g/dl Platelet Count 247 130-400 K/uL Mean Platelet Volume 9.6 7.4-10.4 fL Neutrophils (%) (Auto) 70.2 % Lymphocytes (%) (Auto) 21.7 % Monocytes (%) (Auto) 7.5 % Eosinophils (%) (Auto) 0.1 % Basophils (%) (Auto) 0.2 % Neutrophils # (Auto) 9.85 1.4-6.5 K/uL Lymphocytes # (Auto) 3.04 1.2-3.4 K/uL Monocytes # (Auto) 1.05 0.11-0.59 K/uL Eosinophils # (Auto) 0.01 0-0.5 K/uL Basophils # (Auto) 0.03 0-0.2 K/uL RDW Standard Deviation 45.2 36.4-46.3 fL RDW Coefficient of Variation 13.5 11.5-14.5 % Immature Granulocyte % (Auto) 0.3 % Immature Granulocyte # (Auto) 0.04 0.00-0.02 K/uL Total Bilirubin 0.5 0.2-1 mg/dl Direct Bilirubin 0.1 0-0.2 mg/dl Aspartate Amino Transf (AST/SGOT) 28 15-37 U/L Alanine Aminotransferase (ALT/SGPT) 39 12-78 U/L Alkaline Phosphatase 63 45-117 U/L Total Protein 6.9 6.4-8.2 gm/dl Albumin 3.2 3.4-5.0 gm/dl Assessment & Plan 31yo female POD #1 s/p Laparoscopic Cholecystectomy Patient doing well this AM- reports expected post-operative surgical pain at incisions and in right shoulder. AM labs reviewed. Patient remains afebrile. Patient tolerating regular diet. Would like to go home today. Provided patient with both verbal and written discharge instructions. Patient to follow-up in General Surgery Office with Dr. Woodson in 1-2 weeks.
[2016-12-23] MEDS ORDERED: HYDR-5688 PO ×2 (08:00→08:14)
[2016-12-23] MEDS: FLUOXETINE HCL 20 MG CAP PO SCH (08:41)
[2016-12-23 09:51] VITALS: BP 119/78; PULSE 78; TEMP 36.6; O2SAT 94
--- NOTE | 2016-12-28 08:09 | Discharge Summary ---
Discharge Summary Date of Service Dec 28, 2016. Admission Date/Reason Dec 22, 2016 at 00:38 Cholecystitis. Discharge Date/Disposition Dec 23, 2016 Home Diagnosis Principal Diagnosis: Acute Cholecystitis, Cholelithiasis. Secondary Diagnoses/Problems: Anxiety. Procedure(s) Performed Laparoscopic Cholecystectomy with Dr. Gabriel Woodson Medication Reconciliation Continued Medications: Acetaminophen (Tylenol) 500 Mg Tab 1000 MG PO Q6, TAB Buspirone Hcl (Buspirone Hcl) 10 Mg Tab 10 MG PO TID, TAB Fluoxetine (Prozac) 20 Mg Cap 20 MG PO QAM, CAP Ibuprofen (Advil) 200 Mg Tab 400-600 MG PO Q6H PRN for Pain or Fever, TAB Ondansetron Hcl (Zofran) 4 Mg Tab 4 MG PO Q6 PRN for Nausea, TAB [place] 5MG/325MG Take 1-2 TAB PO PRN pain Q4H x 3 days #30. Admission Physical Exam As per Admitting History & Physical. Hospital Course Ms. Baker is a 31-year-old female who presented to [facility] for a 2 day history of severe back and right upper quadrant pain. Patient reported on admission that he had suffered with back pain for the last 2 years, but felt that it was just due to back spasms. Patient states that the back pain increased 2 days ago and started to radiate and settle into right upper quadrant of abdomen. Patient denies correlation between back and abdominal pain with diet. She has a strong family history of gallbladder issues- mother and maternal grandparents all required cholecystectomy. Patient was nauseous and vomited at least 3 times prior to admission. WBC was elevated at 19.63 on admission. LFTs were within normal limits. Right Upper Quadrant ultrasound revealed: Cholelithiasis with sonographic findings concerning for acute cholecystitis. Clinical correlation will be required. Nuclear hepatobiliary scan could be considered for confirmation. Patient was evaluated by Dr. Woodson who recommended Laparoscopic Cholecystectomy in main OR. Risks of surgery and benefits of surgery discussed with patient. She had no further questions. Patient was taken back to main OR for Lap Kaylene. Post-operatively, patient did well- WBC decreased, patient remained afebrile and LFTs were within normal limits. Pain was controlled and patient tolerated diet. Patient was discharged to home with both verbal and written post-operative instructions. Patient to follow-up in General Surgery Office with Dr. Woodson in 1-2 weeks after discharge. Discharge Instructions Please refer to the electronic Patient Visit Report (Discharge Instructions) for additional information.
== END 2016-12-23 11:28 | disposition home or self-care (01) ==
LOC: C.EDB 21:19 → C.MSW 12-22 00:38 → ENRESERV 12-22 01:02
PROVIDERS: ADMIT Surgery; ATTEND Surgery
DX: K80.00 Calculus of gallbladder with acute cholecystitis without obstruction (principal); F41.9 Anxiety disorder, unspecified; K21.9 Gastro-esophageal reflux disease without esophagitis; E66.01 Morbid (severe) obesity due to excess calories; Z68.41 Body mass index [BMI] 40.0-44.9, adult; Z79.899 Other long term (current) drug therapy; Z91.040 Latex allergy status

== ENCOUNTER → 2017-04-04 | Outpatient (CLI) | payer OTHER ==
[~2017-04-04] MED LIST changes: -HYDR-5688 PO
== END | disposition home or self-care (01) ==
LOC: C.PAPS 16:26
PROVIDERS: ATTEND Obstetrics & Gynecology
DX: Z01.419 Encounter for gynecological examination (general) (routine) without abnormal findings (principal)

== ENCOUNTER 2017-04-20 09:42 | Emergency (ER) | payer OTHER ==
[~2017-04-20] VITALS: Ht 165.1 cm; Wt 108.5 kg
[2017-04-20 09:45] VITALS: TEMP 36.8; Ht 165.1 cm; Wt 108.5 kg
[2017-04-20] MEDS ORDERED: MoRPHine SULFATE 10 MG/ML CARP/VIAL IV STA (10:07)
[2017-04-20] MEDS ORDERED: ONDANSETRON INJ 2 MG/ML 2 ML VIAL IV STA (10:07)
[2017-04-20] MEDS ORDERED: SODIUM CHLORIDE 0.9% 1000ML 1,000 ML IV STA (10:07)
[2017-04-20] MEDS ORDERED: OPTIRAY 320 IV PRN (10:30)
[2017-04-20 10:51] LABS: BASO % 0.6 %; BASO ABS # 0.06 K/uL (0-0.2); HEMATOCRIT 41.9 % (37-47); HEMOGLOBIN 14.6 g/dL (12.0-16.0); IG# 0.01 K/uL (0.00-0.02); LYMPH % 25.6 %; LYMPH ABS # 2.63 K/uL (1.2-3.4); MEAN CELL VOLUME 88.8 fL (80-100); MEAN CORPUSCULAR HEMOGLOBIN 30.9 pg (25-34); MEAN CORPUSCULAR HGB CONC 34.8 g/dl (32-36); MEAN PLATELET VOLUME 9.8 fL (7.4-10.4); MONO % 6.6 %; MONO ABS # 0.68 K/uL (0.11-0.59); NEUT % 66.1 %; NEUT ABS # 6.78 K/uL (1.4-6.5); PLATELET COUNT 275 K/uL (130-400); RED CELL DISTRIBUTION WIDTH CV 13.9 % (11.5-14.5); RED CELL DISTRIBUTION WIDTH SD 45.4 fL (36.4-46.3); WHITE BLOOD COUNT 10.26 K/uL (4.8-10.8)
[2017-04-20 11:17] LABS: ALBUMIN 3.9 gm/dl (3.4-5.0); CREATININE 0.71 mg/dl (0.60-1.20); POTASSIUM 4.1 mmol/L (3.5-5.1)
[2017-04-20 11:20] LABS: TOTAL PROTEIN 7.4 gm/dl (6.4-8.2)
--- NOTE | 2017-04-20 12:32 | DIAGNOSTIC IMAGING REPORT ---
PELVIC ULTRASOUND CLINICAL HISTORY: Abdominal pain, nausea and vomiting. COMPARISON STUDY: None. TECHNIQUE: Transabdominal and transvaginal sonography of the pelvis was performed. FINDINGS: The uterus measures 8.6 x 3.6 x 5 cm. Endometrium measures 8 mm in thickness. Left ovary was visualized transabdominally, measuring 3 x 1.9 x 1.9 cm. The right ovary measured 2.6 x 1.9 x 2.2 cm. There is color flow within each ovary. There is no free fluid. IMPRESSION: Unremarkable pelvic ultrasound. Electronically signed by: Geronimo Butcher M.D. 04/20/2017 12:31 PM Dictated Date/Time: 04/20/2017 12:29 PM
--- NOTE | 2017-04-20 12:55 | DIAGNOSTIC IMAGING REPORT ---
CT OF THE ABDOMEN AND PELVIS WITH CONTRAST CLINICAL HISTORY: Abdominal and pelvic pain. COMPARISON STUDY: Right upper quadrant ultrasound December 21, 2016 and pelvic ultrasound performed earlier today. TECHNIQUE: Following IV administration of 94 mL of [id number]-[id number], axial images of the abdomen and pelvis were obtained from the lung bases to the proximal femurs. Images were reviewed in the axial, sagittal, and coronal planes. IV contrast was administered without complication. A dose lowering technique was utilized adhering to the principles of ALARA. Oral contrast was administered. CT DOSE: 831.42 mGy.cm FINDINGS: Lung bases are clear. There is mild biliary ductal dilatation status post cholecystectomy. The common bile duct measures 1 cm in caliber. Apparent intraluminal material within the common bile duct is probably artifactual. There is no peripancreatic infiltration. The spleen, adrenal glands and knees are normal. There is no hydronephrosis. The caliber and wall thickness of small and large bowel are normal. The appendix is normal. There is colonic diverticulosis without evidence for acute diverticulitis. The ovaries are not enlarged. There is trace fluid within the pelvis. A small fat-containing umbilical hernia is present. IMPRESSION: 1. No acute process within the abdomen or pelvis. Normal appendix. No bowel obstruction. 2. Colonic diverticulosis without evidence for acute diverticulitis. 3. Mild biliary ductal dilatation, likely related to prior cholecystectomy. Apparent intraluminal material within the distal common bile duct is probably artifactual however sludge or stones could appear similar and the findings could be correlated with liver function tests. No peripancreatic infiltration. 4. Trace free pelvic fluid, likely physiologic. Electronically signed by: Geronimo Butcher M.D. 04/20/2017 12:53 PM Dictated Date/Time: 04/20/2017 12:48 PM
[2017-04-20] MEDS ORDERED: LORAZEPAM 2 MG/ML 1 ML VIAL IV STA (13:21)
[2017-04-20] MEDS ORDERED: KETO10TA PO (14:10)
[2017-04-20 14:27] VITALS: BP 119/89; PULSE 78; O2SAT 97
--- NOTE | 2017-04-21 06:28 | EMERGENCY ROOM VISIT NOTE ---
ED Visit Note First contact with patient: 10:35 Chief Complaint: Abdominal pain. History of Present Illness: Ms. Baker is a 31 year-old white female who ambulates into the ED accompanied by her complaining of right lower quadrant abdominal pain. Historically patient reports reports she has had no significant gastrointestinal disorders and is status post cholecystectomy and section. Patient reports an acute onset of left lower quadrant abdominal pain that started 4 days ago while at rest. She reports the pain was constant for 2 days and then on Monday started to resolve. Then last night approximately 12 hours ago the pain started to recur. Currently she describes her pain as a cramping sensation. She rates her discomfort 10/10. She reports mild radiation of her pain around to the lateral aspect of the abdomen and into the left lower back. She reports her pain is aggravated by palpation of the left lower quadrant. She has not identified any alleviating factors related to the pain. She reports she has been taken ibuprofen without relief of her discomfort. Associated with her pain she reports she has been nauseated and had one episode of vomiting. She denies any associated fevers, chills, sweats, skin eruptions, skin color changes, upper respiratory tract symptoms, shortness of breath, chest pain, diarrhea, constipation, rectal bleeding, black/tarry stools, urinary symptoms, hematuria, vaginal bleeding, vaginal discharge, flank pain. Review of Systems: As noted above in history of present illness. All body systems were reviewed and found to be negative as noted above. Past Medical History: As previously noted and anxiety. Current Medications: Buspirone, Zofran. Allergies to Medications: Latex, chlorhexidine. Social History: Patient is not employed; she feels safe in her home environment ; she denies tobacco and alcohol use. Physical Examination: Vital Signs: Date Time Temp Pulse Resp B/P (MAP) Pulse Ox O2 Delivery O2 Flow Rate FiO2 04/20/17 14:27 78 16 119/89 97 04/20/17 13:58 71 16 127/81 99 Room Air 04/20/17 13:05 59 16 118/62 97 Room Air 04/20/17 11:22 57 04/20/17 11:15 65 16 140/89 100 Room Air 04/20/17 09:45 36.8 82 17 136/84 96 Room Air GENERAL: 31-year-old female in mild to moderate distress due to pain, nontoxic- appearing, afebrile and hemodynamically stable. NEUROLOGICAL: Awake, alert and oriented to person, place and time. Answering questions appropriately and following commands. Normal gait. Good hand eye coordination. SKIN: Warm, dry and pink. No soft tissue eruptions or trauma noted. HEENT: Atraumatic and normocephalic. PERRLA. Sclera white and conjunctiva pink. Oral cavity moist and pink. Pharynx is nonerythematous or edematous. Speech normal. No lymphadenopathy. Trachea midline. No jugular venous distention. BACK: No tenderness over the bony spine. No CVA tenderness. THORAX: Lungs sounds are clear to auscultation and equal bilaterally with symmetrical chest wall. No wheezing, rales or rhonchi. No crepitus, tenderness , subcutaneous air or deformities noted. HEART: Regular rate and rhythm. No gallops, rubs or murmurs are appreciated. ABDOMEN: Flat and soft with mild to moderate tenderness in the left lower quadrant. Positive bowel sounds in all quadrants. No guarding, rigidity or organomegaly. EXTREMITIES: Moves all extremities well on command and with purpose. All distal neurovascular statuses are intact and equal bilaterally. ED Course: Patient is assessed as noted above. Patient's medication list was reviewed. Laboratory Testing: Test 04/20/17 10:25 04/20/17 10:30 Range/Units Urine Color YELLOW Urine Appearance CLEAR CLEAR Urine pH 6.5 4.5-7.5 Urine Specific [place] 1.022 1.000-1.030 Urine Protein NEG NEG Urine Glucose (UA) NEG NEG Urine Ketones NEG NEG Urine Occult Blood 3+ NEG Urine Nitrite NEG NEG Urine Bilirubin NEG NEG Urine Urobilinogen NEG NEG Urine Leukocyte Esterase TRACE NEG Urine WBC (Auto) 1-5 0-5 /hpf Urine RBC (Auto) >30 0-4 /hpf Urine Hyaline Casts (Auto) 1-5 0-5 /lpf Urine Epithelial Cells (Auto) >30 0-5 /lpf Urine Bacteria (Auto) NEG NEG White Blood Count 10.26 4.8-10.8 K/uL Red Blood Count 4.72 4.2-5.4 M/uL Hemoglobin 14.6 12.0-16.0 g/dL Hematocrit 41.9 37-47 % Mean Corpuscular Volume 88.8 80-100 fL Mean Corpuscular Hemoglobin 30.9 25-34 pg Mean Corpuscular Hemoglobin Concent 34.8 32-36 g/dl Platelet Count 275 130-400 K/uL Mean Platelet Volume 9.8 7.4-10.4 fL Neutrophils (%) (Auto) 66.1 % Lymphocytes (%) (Auto) 25.6 % Monocytes (%) (Auto) 6.6 % Eosinophils (%) (Auto) 1.0 % Basophils (%) (Auto) 0.6 % Neutrophils # (Auto) 6.78 1.4-6.5 K/uL Lymphocytes # (Auto) 2.63 1.2-3.4 K/uL Monocytes # (Auto) 0.68 0.11-0.59 K/uL Eosinophils # (Auto) 0.10 0-0.5 K/uL Basophils # (Auto) 0.06 0-0.2 K/uL RDW Standard Deviation 45.4 36.4-46.3 fL RDW Coefficient of Variation 13.9 11.5-14.5 % Immature Granulocyte % (Auto) 0.1 % Immature Granulocyte # (Auto) 0.01 0.00-0.02 K/uL Sodium Level 138 136-145 mmol/L Potassium Level 4.1 3.5-5.1 mmol/L Chloride Level 104 98-107 mmol/L Carbon Dioxide Level 28 21-32 mmol/L Anion Gap 5.0 3-11 mmol/L Blood Urea Nitrogen 9 7-18 mg/dl Creatinine 0.71 0.60-1.20 mg/dl Est Creatinine Clear Calc Drug Dose 143.2 ml/min Estimated GFR () 133.4 Estimated GFR (Non- 115.1 BUN/Creatinine Ratio 12.9 10-20 Random Glucose 87 70-99 mg/dl Calcium Level 9.0 8.5-10.1 mg/dl Total Bilirubin 0.4 0.2-1 mg/dl Direct Bilirubin 0.1 0-0.2 mg/dl Aspartate Amino Transf (AST/SGOT) 11 15-37 U/L Alanine Aminotransferase (ALT/SGPT) 16 12-78 U/L Alkaline Phosphatase 69 45-117 U/L Total Protein 7.4 6.4-8.2 gm/dl Albumin 3.9 3.4-5.0 gm/dl Lipase 69 73-393 U/L Human Chorionic Gonadotropin, Qual NEG NEG Pelvis Ultrasound: Was reviewed by myself and read by the radiologist and showed an unremarkable pelvic ultrasound with normal-appearing uterus, ovaries and no free fluid. Contrast Abdominal/Pelvic CT: Was reviewed by myself and read by the radiologist showing no acute process within the abdomen or pelvis, normal- appearing appendix, no bowel obstruction, colonic diverticulosis without evidence of acute diverticulitis, mild biliary dilatation likely related to previous cholecystectomy and trace fluid in the pelvis. Patient was hydrated with normal saline and received 6 mg of morphine IV for pain and 4 mg of Zofran. During her stay in the emergency department patient reported she had not take her antianxiety medication and requested anxiety medication for anxiety. I was going to give her her normal dose of buspirone but reported it takes too long to be effective and requested IV and anxiety medication so she was given 1 mg of Ativan IV. Patient was reassessed multiple times during her stay in the emergency department. Patient was educated about today's findings and instructed on her treatment plan ; she verbalizes understanding and agreement with this plan. Clinical Impression: Acute left lower quadrant abdominal pain. Decision-Making: Initially my differential diagnosis I considered ovarian cysts ovarian torsion, ectopic , diverticulitis, bowel obstruction, constipation and other causes. Disposition: Patient discharged to home in stable condition; prior to departure she was reassessed and subjectively reported she was feeling better and rated her discomfort 8/10. Additionally my discharge instructions were alternate ibuprofen and acetaminophen and she did not feel that was working well and requested a prescription strength anti-inflammatory and she was prescribed Toradol. Plan: Patient was encouraged alternate 10 mg of Toradol and 650 mg of acetaminophen every 3 hours as needed for pain. Patient was encouraged to continue her other medications as prescribed. Patient was encouraged to stay well-hydrated with increased clear fluid. Patient was encouraged to contact her family physician later today and request follow-up care and treatment. Patient was encouraged to return to the ED for worsening pain, fevers, worsening nausea/vomiting, bloody vomitus, bloody stools or any new/concerning symptoms.
== END 2017-04-20 14:29 | disposition home or self-care (01) ==
LOC: C.EDB 09:44 → C.EDC 14:29
DX: R10.32 Left lower quadrant pain (principal); F41.9 Anxiety disorder, unspecified; Z90.49 Acquired absence of other specified parts of digestive tract